=== PATIENT | female | born 1980 | race Two or more races ===

== ENCOUNTER 2023-10-14 07:38 | Emergency (ER) | payer BC ==
[~2023-10-14] VITALS: Ht 154.9 cm; Wt 86.2 kg
[2023-10-14 12:35] LABS: HEMATOCRIT 36.6 % (36.0-45.00); HEMOGLOBIN 12.3 g/dL (12.0-15.00); MEAN CELL VOLUME 82.4 fL (80.00-100.00); MEAN CORPUSCULAR HEMOGLOBIN 27.6 pg (27.00-32.0); MEAN CORPUSCULAR HGB CONC 33.5 g/dl (32.0-36.0); PLATELET COUNT 335 K/uL (150-450); RED BLOOD COUNT 4.44 M/uL (4.00-6.00); RED CELL DISTRIBUTION WIDTH 14.9 % (11.5-14.5)
[2023-10-14 12:53] LABS: CALCIUM 9.3 mg/dL (8.5-10.1); CREATININE SERUM 0.62 mg/dL (0.55-1.02); GFR 105.06; POTASSIUM 3.95 mEq/L (3.5-5.1)
[2023-10-14 13:37] LABS: PH,URINE 5.5 (5.0-8.0); URINE APPEARANCE Cloudy; URINE BACTERIA 860.5 uL (0.0-1933); URINE BILIRRUBIN Negative (NEGATIVE); URINE BLOOD Large; URINE COLOR Dark Yellow; URINE EPITHELIAL CELLS 27.6 uL (0.0-38.8); URINE GLUCOSE Negative (NEGATIVE); URINE KETONE Trace (NEGATIVE); URINE LEUKOCYTE Small; URINE NITRATE Negative; URINE PROTEIN 30 (NEGATIVE); URINE WBC 87.7 uL (0.0-23.2)
[2023-10-14 13:56] LABS: URINE RBC > 10558.9 uL (0.0-20.8)
== END 2023-10-14 15:05 | disposition home or self-care (01) ==
LOC: ER 07:39
PROVIDERS: General Practice
DX: T19.2XXA Foreign body in vulva and vagina, initial encounter (principal); Z97.5 Presence of (intrauterine) contraceptive device